=== PATIENT | female | born 1990 | race Caucasian/White ===

== ENCOUNTER 2016-05-09 18:11 | Emergency (ER) | payer OTHER ==
[~2016-05-09] VITALS: Ht 160 cm; Wt 95.3 kg
[~2016-05-09 18:11] MED LIST: IBUPROFEN800 M1 PO
[2016-05-09 18:38] LABS: ABSOLUTE BASOPHIL COUNT 0.1 /CUMM (0.0-0.2); ABSOLUTE EOSINOPHIL COUNT 0 /CUMM (0.0-0.7); ABSOLUTE GRANULOCYTE CT 2.6 /CUMM (1.4-6.5); ABSOLUTE LYMPH COUNT 6.8 /CUMM (1.2-3.4); ABSOLUTE MONOCYTE COUNT 1.6 /CUMM (0.10-0.60); BASOPHIL % 0.8 % (0.0-2.0); EOSINOPHIL % 0.2 % (0-5); GRANULOCYTE % 23.6 % (42.2-75.2); HEMATOCRIT 41.1 % (37-47); MEAN CORPUSCULAR HGB 27.8 PG (27.0-31.0); MEAN CORPUSCULAR HGB CONC 34.2 G/DL (33.0-37.0); MEAN CORPUSCULAR VOLUME 81.2 FL (81.0-99.0); MEAN PLATELET VOLUME 9.9 FL (7.4-10.4); PLATELET COUNT 130 /CUMM (130-400); RBC DISTRIBUTION WIDTH 13.8 % (11.5-14.5); RED BLOOD CELL CT 5.05 /CUMM (4.20-5.40)
--- NOTE | 2016-05-09 18:46 | ED THROAT/DENTAL COMPLAINT ---
History of Present Illness General Chief Complaint: General Adult Stated Complaint: PT HAS SWOLLEN GLANDS Source: patient, old records Exam Limitations: no limitations Vital Signs & Intake/Output Vital Signs & Intake/Output Vital Signs Date Time Temp Pulse Resp B/P Pulse O2 O2 Flow FiO2 Ox Delivery Rate 05/09 1925 97.5 94 20 125/80 97 Room Air 05/09 1815 98.9 108 18 133/92 99 Room Air ED Intake and Output 05/10 0000 05/09 1200 Intake Total Output Total Balance Patient 210 lb Weight Allergies Coded Allergies: No Known Allergies (12/11/15) Reconcile Medications Ibuprofen 800 MG TABLET 1 TAB PO 4 TIMES/DAY PRN pain Methylprednisolone. (Medrol) 4 MG TAB.DS.PK 1 DP PO AD mono 6 on day 1 then reduce by one tablet daily until gone Triage Note: PT COMPLAINS OF SWOLLEN GLANDS TO SIDE OF HER NECK WITH PAIN, WAS SEEN IN WALK IN AND STARTED ON ABT, HAD NEGATIVE STREP TEST , STATES THAT SHE HAS BEEN VERY TIRED, QUESTIONS MIN Triage Nurses Notes Reviewed? yes Onset: Abrupt Duration: day(s): (3), constant Timing: recent history Injury Environment: home Severity: moderate Severity Numbers: 5 No Modifying Factors: none Associated Symptoms: DENIES : No Patient currently breastfeeds: No HPI: This is a 25-year-old female who presents emergency room complaining of a progressively worsening swollen lymph node to her left mandible for the past 3 days associated with generalized malaise. She was seen by urgent care and has been started on clindamycin after she had a negative strep swab. Symptoms persist she denies fevers or reports of subjective chills. No sick contacts no recent travel no dental pain or recent dental work. She is not taken anything else for her symptoms no abdominal pain nausea vomiting cough shortness of breath, ear pain. (DAMARIS STILES) Past History Travel History Traveled to [place] past 21 day No Medical History Any Pertinent Medical History? 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 No (DAMARIS STILES) Review of Systems Review of Systems Constitutional: Reports: see HPI. All Other Systems: Reviewed and Negative Comments Review of systems: See HPI, All other systems negative. Constitutional, no chills no fever, no malaise no weight loss HEENT: No visual changes no sore throat no congestion, no ear pain Cardiovascular: No chest pain , no palpitation , no orthopnea no ankle swelling Skin, no jaundice no rashes, no change in skin Respiratory: No dyspnea no cough no sputum no hemoptysis GI: No nausea no vomiting, no diarrhea, no bloating/constipation : No dysuria No hematuria, no frequency, no discharge Muscle skeletal: No joint pain, no joint swelling, no back pain, no neck pain, Neurologic: No numbness no confusion, no headache Psych: No stress no anxiety no depression,. Heme/endocrine: No bruising no bleeding no polyuria no polydipsia Immunology: No lymphadenopathy, no splenectomy (DAMARIS STILES) Physical Exam Physical Exam General Appearance: well developed/nourished, alert, awake Mouth/Throat: normal mouth inspection, pharynx normal Comments: Well-developed well-nourished patient in no apparent distress. Head/Face: Atraumatic, no maxillary/frontal sinus tenderness, no facial swelling Eyes: PERRL, EOMI, no conjunctival injection. No nystagmus Ear:External auditory canal and Tympanic membranes clear, no erythema, no FB. Nose: atraumatic.Normal inspection: No bleeding Throat: Moist mucous membranes.pharynx is erythematous no exudate. No stridor/ drooling or assymetry. No swelling or edema. Neck: Supple, positive bilateral anterior lymphadenopathy no posterior lymphadenopathy, FROM Back: FROM, Nontender Cardiovascular: Regular rate and rhythms no murmurs rubs Respiratory: Chest nontender.There were no bony deformities, no asymmetry. No respiratory distress. Patient speaking in full complete sentences. Breath sounds clear to auscultation bilaterally: NO W/R/R Abdomen: soft nontender no palpable splenomegaly Extremities: full range of motion Neuro: Alert and oriented x3 Skin: Warm & dry;No appreciable rash on exposed skin Psych: Mood affect normal, normal memory normal judgment. Core Measures ACS in differential dx? No Severe Sepsis Present: No Septic Shock Present: No (DAMARIS STILES) Progress Differential Diagnosis: odontogenic abscess, silver-tonsillar abscess, strep pharyngitis, VIRAL SYNDROME, MONO Plan of Care: Orders Procedure Date/time Status MONOSPOT 05/09 1818 Complete COMPREHENSIVE METABOLIC PANEL 05/09 1818 Complete CBC WITHOUT DIFFERENTIAL 05/09 1818 Complete Laboratory Tests 05/09/161824: Anion Gap 11, Estimated GFR > 60, BUN/Creatinine Ratio 16.0, Glucose 115 H, Calcium 9.1, Total Bilirubin 0.7, AST 186 H, ALT 249 H, Alkaline Phosphatase 212 H, Total Protein 7.4, Albumin 3.9, Globulin 3.5, Albumin/Globulin Ratio 1.1 , CBC w Diff NO MAN DIFF REQ, RBC 5.05, MCV 81.2, MCH 27.8, RDW 13.8, MPV 9.9, Gran % 23.6 L, Lymphocytes % 61.3 H, Monocytes % 14.1 H, Eosinophils % 0.2, Basophils % 0.8, Absolute Granulocytes 2.6, Absolute Lymphocytes 6.8 H, Absolute Monocytes 1.6 H, Absolute Eosinophils 0, Absolute Basophils 0.1, PUBS MCHC 34.2, Infectious [place] POSITIVE Labs ordered old records reviewed I discussed the patient her lab work including her elevated liver tests and positive mono. Advise she stopped the clindamycin prescription for prednisone provided I discussed with her however her symptoms given positive mono are more supportive treatment needed. Advise importance of hydration clear fluids provided her with with information for follow-up with primary care and pressure return anytime sooner with any concerns answered all of her questions she feels couple plan clear discharge (DAMARIS STILES) Departure Departure Time of Disposition: 1916 Disposition: HOME OR SELF CARE Condition: Stable Clinical Impression Primary Impression: Mononucleosis Referrals: KATHLEEN MORENO DO PATIENT HAS NO PRIMARY CARE DR (PCP/Family) Additional Instructions: You can stop taking the clindamycin and Medrol Dosepak as directed this prescription was sent here pharmacy drink plenty of fluids saltwater gargles Tylenol Motrin as needed follow-up with primary care physician Kathleen Moreno DO, return to emergency room with any concerns Departure Forms: Customer Survey General Discharge Information Prescriptions: Current Visit Scripts Methylprednisolone. (Medrol) 1 DP PO AD #1 DP 6 on day 1 then reduce by one tablet daily until gone (DAMARIS STILES) PA/[employer] Co-Sign Statement Statement: ED Attending supervision documentation- [] I saw and evaluated the patient. I have also reviewed all the pertinent lab results and diagnostic results. I agree with the findings and the plan of care as documented in the PA's/[employer]'s documentation. x I have reviewed the ED Record and agree with the PA's/[employer]'s documentation. [] Additions or exceptions (if any) to the PAs/[employer]'s note and plan are summarized below: [] (SHORTY MILES,CIARRA)
[2016-05-09] MEDS ORDERED: MEDROL4 M2 PO (19:18)
[2016-05-09 19:25] VITALS: BP 125/80
== END 2016-05-09 19:37 ==
LOC: ERH 18:11
PROVIDERS: Emergency Medicine
DX: B27.90 Infectious mononucleosis, unspecified without complication (principal)